=== PATIENT | male | born 1950 | race Caucasian/White ===

== ENCOUNTER → 2017-06-18 | Outpatient (CLI) | payer OTHER, MEDICARE | LOC: BMCIMAGING 09:38 | PROVIDERS: ATTEND Orthopaedic Surgery | DX: Z47.1 Aftercare following joint replacement surgery (principal); Z96.651 Presence of right artificial knee joint; Z96.652 Presence of left artificial knee joint ==

== ENCOUNTER → 2017-06-22 | Outpatient (CLI) | payer OTHER, MEDICARE | LOC: FCPNEURO 21:30 | PROVIDERS: ATTEND Psychiatry & Neurology Sleep Medicine | DX: G47.33 Obstructive sleep apnea (adult) (pediatric) (principal); G47.61 Periodic limb movement disorder ==

== ENCOUNTER → 2017-07-09 | Outpatient (CLI) | payer OTHER, MEDICARE | LOC: FIMAGING 09:51 | PROVIDERS: ATTEND Orthopaedic Surgery | DX: M25.561 Pain in right knee (principal); M25.562 Pain in left knee; Z96.653 Presence of artificial knee joint, bilateral | CPT/HCPCS: 78315; A9503 ==

== ENCOUNTER 2017-09-14 16:22 | Emergency (ER) | payer OTHER, MEDICARE ==
[2017-09-14] MEDS ORDERED: ONDANSETRON 4 MG/2 ML VIAL IVP ONE (16:57)
[2017-09-14] MEDS ORDERED: fentaNYL 100 MCG/2 ML INJ IVP ONE (16:57)
[2017-09-14] MEDS ORDERED: IOPAMIDOL (ISOVUE-300) 100 ML BTL ONE (17:01)
--- NOTE | 2017-09-14 17:01 | EDPHY ---
H & P Time Seen by Provider: 09/14/17 16:49 HPI/ROS: CHIEF COMPLAINT: Fall, right flank pain HISTORY OF PRESENT ILLNESS: The patient is a 67-year-old male who presents emergency department after falling in the bathroom. The patient states the rug slipped out from under his feet. This caused him to fall striking his right flank on the sink. He now has significant right flank pain. It is worse with movement. It is worse with deep breath. He denies shortness of breath. No abdominal pain. Patient denies gross hematuria. No dysuria. Patient denies midline back pain. He did not strike his head or lose consciousness. No headache or neck pain. REVIEW OF SYSTEMS: My complete review of systems is negative except as mentioned in the HPI. Past Medical/Surgical History: Includes hypertension Past surgical history: Multiple orthopedic surgeries Social history: The patient does not smoke Smoking Status: Never smoked Physical Exam: Vitals noted. Hypertensive GENERAL: Well-appearing, in no acute distress, alert. HEAD: No evidence of trauma. EYES: PERRLA, EOMI, normal to inspection. ENT: Airway intact, no dental or oral injury, no malocclusion, no hemotympanum , normal external examination. NECK: The trachea is midline. There is no crepitus. The C-spine is nontender. NEXUS criteria is negative (no midline tenderness, no distracting injury, no altered mental status, no recent alcohol use, no focal neurologic deficit). RESPIRATORY: Clear to auscultation bilaterally, no rales, rhonchi or wheezing. Slight right lateral crepitus. No bruising or discoloration. CVS: Regular rate and rhythm, no rubs, murmurs, or gallops. ABDOMEN: Soft, nontender, nondistended, normal bowel sounds, no bruising or abrasions. Pelvis: Stable. No tenderness palpation. Hips full range of motion. BACK: Normal to inspection, no spinal tenderness, no spinal step off, no notable bruising or abrasions. SKIN: Normal color, warm, dry. No pallor or diaphoresis. EXTREMITIES: Atraumatic, neurovascularly intact distally in all extremities, pelvis is stable , hips with full range of motion, moves all extremities freely. NEURO/PSYCH: Alert and oriented, GCS 15, normal mood and affect, normal motor sensory exam. Constitutional: Initial Vital Signs Temperature (C) 36.5 C 09/14/17 16:32 Heart Rate 60 09/14/17 16:32 Respiratory Rate 16 09/14/17 16:32 Blood Pressure 176/107 H 09/14/17 16:32 O2 Sat (%) 96 09/14/17 16:32 O2 Delivery Mode Room Air Allergies/Adverse Reactions: No Known Allergies Allergy (Unverified 09/14/17 16:36) Home Medications: Medication Instructions Recorded [place]-3 Fatty Acids [Fish Oil 1000 4,000 mg PO DAILY 07/10/15 mg (*)] Cholecalciferol (Vitamin D3) 5,000 unit PO DAILY 07/24/15 [Vitamin D3] Naproxen Sodium [Aleve 220 MG (*)] 440 mg PO BIDMEAL@08,20 #0 tab 08/03/15 Sennosides [Senokot] 1 tab PO BID #0 tab 08/03/15 Simvastatin [Zocor] 40 mg PO DAILY #0 tablet 08/03/15 Zolpidem Tartrate [Ambien 5MG (*)] 5 - 10 mg PO HS PRN #10 tab 08/03/15 Ondansetron Odt [Zofran Odt 4 mg 4 mg PO Q4PRN PRN #7 tab 09/14/17 (*)] oxyCODONE/APAP 5/325 [Percocet 1 - 2 tab PO Q4PRN PRN #11 tab 09/14/17 5/325 (*)] Medical Decision Making - Diagnostics Imaging Results: Imaging Impressions Abdomen CT 09/14/17 16:58 Impression: 1. 3 posterior right rib fractures, without evidence of right lung base, liver or right renal injury. Results called and discussed with PEGGY WEST, at 09/14/2017 17:40 General information for patients regarding this examination can be found at [email or web address]. If you have questions or comments about this report, please contact me at (hospital) or [phone] (cell). ED Course/Re-evaluation: In the emergency department I discussed possible etiologies with the patient. I answered all his questions. IV was placed. Patient given fentanyl 50 mcg IV and Zofran 4 mg IV. I-STAT was performed. The patient's hematocrit was normal. creatinine was 0.8. Chest x-ray and abdominal CT were ordered. CT of the abdomen pelvis: Patient has multiple right rib fractures. No pneumothorax or hemothorax. Normal kidney and liver. Chest x-ray: No pneumothorax. I discussed the results with the patient. I answered all his questions. He was given warnings. He was given a prescription for Percocet as well as Zofran. He was given incentive spirometer instructions on use. Differential Diagnosis: My differential includes but is not limited to rib fracture, rib contusion, pneumothorax, hemothorax, pulmonary contusion, liver laceration, kidney injury - Data Points Laboratory Results: 09/14/17 16:49 POC Hgb 15.3 gm/dL gm/dL (13.7-17.5) POC Hct 45 % % (40-51) POC Sodium 133 mEq/L L mEq/L (135-145) POC Potassium 4.3 mEq/L mEq/L (3.3-5.0) POC Chloride 97 mEq/L mEq/L (97-110) POC BUN 12 mg/dL mg/dL (7-23) POC Creatinine 0.8 mg/dL mg/dL (0.7-1.3) POC Glucose 105 mg/dL H mg/dL (70-100) Medications Given: Discontinued Medications Fentanyl (Sublimaze) 50 mcg IVP EDNOW ONE Stop: 09/14/17 16:58 Last Admin: 09/14/17 17:08 Dose: 50 mcg Ondansetron HCl (Zofran) 4 mg IVP EDNOW ONE Stop: 09/14/17 16:58 Last Admin: 09/14/17 17:08 Dose: 4 mg Point of Care Test Results: Chemistry 09/14/17 16:49 POC Sodium 133 mEq/L L mEq/L (135-145) POC Potassium 4.3 mEq/L mEq/L (3.3-5.0) POC Chloride 97 mEq/L mEq/L (97-110) POC BUN 12 mg/dL mg/dL (7-23) POC Creatinine 0.8 mg/dL mg/dL (0.7-1.3) POC Glucose 105 mg/dL H mg/dL (70-100) ISTAT H&H 09/14/17 16:49 POC Hgb 15.3 gm/dL gm/dL (13.7-17.5) POC Hct 45 % % (40-51) Departure - Departure Disposition: Home, Routine, Self-Care Clinical Impression: Rib fractures Qualifiers: Encounter type: initial encounter Rib fracture type: multiple ribs Fracture type: closed Laterality: right Qualified Code(s): S22.41XA - Multiple fractures of ribs, right side, initial encounter for closed fracture Condition: Good Instructions: Rib Fracture (ED) Additional Instructions: Use the incentive spirometer 5 times daily. Use pain medication as needed. Return with increasing chest pain or shortness of breath. Referrals: Mu Marmolejo MD [Primary Care Provider] - 3-4 days, if not improved Prescriptions: Ondansetron Odt [Zofran Odt 4 mg (*)] 4 mg PO Q4PRN PRN #7 tab PRN Reason: For Nausea & Vomiting oxyCODONE/APAP 5/325 [Percocet 5/325 (*)] 1 - 2 tab PO Q4PRN PRN #11 tab PRN Reason: For Moderate To Severe Pain
[2017-09-14] MEDS ORDERED: OXYCODONE/APAP 5/325MG PREPACK#4 BTL TAKEHOME ONE ×2 (18:21→18:22)
[2017-09-14] MEDS ORDERED: OXYCODONE/APAP 5/325 TAB PO ONE (18:23)
[2017-09-14 18:32] VITALS: BP 143/104
== END 2017-09-14 18:31 | disposition home or self-care (01) ==
DX: S22.41XA Multiple fractures of ribs, right side, initial encounter for closed fracture (principal); I10 Essential (primary) hypertension; W01.198A Fall on same level from slipping, tripping and stumbling with subsequent striking against other object, initial encounter; Y92.012 Bathroom of single-family (private) house as the place of occurrence of the external cause; Y99.8 Other external cause status; Y93.89 Activity, other specified
CPT/HCPCS: 71046; 74177; 96374; 96375; 99285; J2405; J3010; Q9967; 82435-PO; 82565-PO; 82947-PO; 84132-PO; 84295-PO; 84520-PO; 85014-PO

== ENCOUNTER → 2018-06-24 | Outpatient (CLI) | payer OTHER, MEDICARE ==
[~2018-06-24] MED LIST: IOPAMIDOL (ISOVUE 370) 100 ML BTL IV ONE
== END ==
LOC: FIMAGING 14:09
PROVIDERS: ATTEND Internal Medicine Cardiovascular Disease
DX: I71.2 Thoracic aortic aneurysm, without rupture (principal); E04.1 Nontoxic single thyroid nodule
CPT/HCPCS: 71275; Q9967

== ENCOUNTER → 2018-07-07 | Outpatient (CLI) | payer OTHER, MEDICARE | LOC: FIMAGING 12:12 | PROVIDERS: ATTEND Family Medicine | DX: E04.1 Nontoxic single thyroid nodule (principal) ==